=== PATIENT | female | born 2005 | race Caucasian/White ===

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

== ENCOUNTER 2024-05-05 21:29 | Emergency (ER) | payer OTHER, SELFPAY ==
[2024-05-05 21:31] VITALS: BP 126/90; PULSE 90; RESP 15; TEMP 36.2; O2SAT 98
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
[2024-05-05] MEDS: Clindamycin 150 MG CAP, 12 CAPS/BTL 450 MG PO (22:49)
--- NOTE | 2024-05-09 08:09 | NUR.NOTE ---
Access chart to determine antibiotic on discharge for wound culture. Nursing Note:
== END 2024-05-05 22:50 | disposition home or self-care (01) ==
PROVIDERS: Emergency Provider Student in an Organized Health Care Education/Training Program; PCP Family Medicine
DX: L02.411 Cutaneous abscess of right axilla (principal)
CPT/HCPCS: 10060; 87077; 87070; 87186; 87205

== ENCOUNTER 2024-06-03 15:26 | Outpatient (REF) | payer OTHER, SELFPAY ==
[2024-06-03 16:43] LABS: Abs Immature Grans 0.01 10^3/uL (0.0-0.06); Absolute Basophil Count 0.04 10^3/uL (0.0-0.2); Absolute Eosinophil Count 0.26 10^3/uL (0.0-0.7); Absolute Lymphocyte Count 1.36 10^3/uL (1.2-3.4); Absolute Monocyte Count 0.43 10^3/uL (0.1-0.8); Absolute Neutrophil Count 3.16 10^3/uL (1.2-6.7); Basophils % 0.8 %; Eosinophils % 4.9 %; HCT 40.9 % (36.0-46.0); HGB 13.1 g/dL (11.2-15.7); Immature Grans % 0.2 %; Lymphocytes % 25.9 %; MCV 84 fL (80-95); Monocytes % 8.2 %; Platelet Count 265 10^3/uL (130-400); RBC 4.85 10^6/uL (3.93-5.22); RDW 12.8 % (11.7-14.6); RDW-SD 39.2 fL; WBC 5.26 10^3/uL (4.4-10.8)
== END 2024-06-03 15:27 | disposition home or self-care (01) ==
LOC: NCHCN 15:26
PROVIDERS: PCP Family Medicine; Visit Provider Family Medicine
DX: O99.019 Anemia complicating pregnancy, unspecified trimester (principal)
CPT/HCPCS: 85025

== ENCOUNTER 2025-07-27 08:59 | Emergency (ER) | payer OTHER, MEDICAID, SELFPAY ==
[2025-07-27 09:06] VITALS: BP 136/71; PULSE 100; RESP 18; TEMP 36.4; O2SAT 100
--- NOTE | 2025-07-27 09:08 | DI.RAD_ITS ---
Exam(s) XR ANKLE RT COMPLETE EXAM: XR ANKLE RT COMPLETE CLINICAL HISTORY: trauma. TECHNIQUE: 2D digital imaging was performed of the right ankle. Three images were obtained. AP, lateral and oblique views were obtained. COMPARISON: No exams were available for comparison FINDINGS: BONES: No acute fracture is present. No bony destructive lesion is seen. JOINTS: The ankle mortise is normally aligned. SOFT TISSUE: Normal. IMPRESSION: Unremarkable radiographs of the right ankle. DATA REPOSITORY: RADIATION DOSE DELIVERED:
[2025-07-27] MEDS: Acetaminophen 325 MG TAB 650 MG PO (09:12)
[2025-07-27] MEDS: Ibuprofen 600 MG TAB PO (09:12)
--- NOTE | 2025-07-27 09:30 | RT.EKG_ITS ---
APPROVED REPORT Exam: Resting ECG Reason for Exam: syncope Patient Location: E HR:78 bpm ECG Measurements Heart Rate 78 AXIS NV 143 P 75 QRSd 81 QRS 73 QT 384 T 19 QTc 438 Conclusion Sinus rhythm...normal P axis, V-rate 60- 99 No STEMI
[2025-07-27 10:17] VITALS: BP 112/57; PULSE 66; TEMP 37.1; O2SAT 100
[2025-07-27 10:31] LABS: Abs Immature Grans 0.02 10^3/uL (0.0-0.06); HCT 40.1 % (36.0-46.0); HGB 13.4 g/dL (11.2-15.7); Immature Grans % 0.2 %; MCH 28.8 pg (27.0-33.0); MCHC 33.4 % (32.0-36.0); MCV 86 fL (80-95); MPV 10.1 fL (8.0-11.0); Platelet Count 246 10^3/uL (130-400); RBC 4.66 10^6/uL (3.93-5.22); RDW 12.2 % (11.7-14.6); RDW-SD 38.1 fL; WBC 10.01 10^3/uL (4.4-10.8)
[2025-07-27 10:51] LABS: ALT 12 U/L (14-59); AST 11 U/L (15-37); Albumin 4.7 g/dL (3.4-5.0); Alkaline Phosphatase 57 U/L (46-116); Anion Gap 9.3 mmol/L (3-11); BUN 7 mg/dL (7-18); Bilirubin, Total 1.4 mg/dL (0.2-1.0); CO2 26.7 mmol/L (21.0-32.0); Calcium 9.0 mg/dL (8.5-10.1); Chloride 101 mmol/L (98-107); Glucose 95 mg/dL (74-106); Potassium 3.8 mmol/L (3.5-5.1); Sodium 137 mmol/L (136-145); Total Protein 8.6 g/dL (6.4-8.2)
[2025-07-27 10:59] LABS: D-Dimer 363 ng/mlFEU (<500)
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
[2025-07-27 11:20] VITALS: BP 115/71; PULSE 78; O2SAT 98
== END 2025-07-27 11:20 | disposition home or self-care (01) ==
PROVIDERS: Emergency Provider General Practice; PCP Family Medicine
DX: S06.0XAA Concussion with loss of consciousness status unknown, initial encounter; M25.571 Pain in right ankle and joints of right foot; S09.8XXA Other specified injuries of head, initial encounter; R55 Syncope and collapse
CPT/HCPCS: 99284 ×2; 81025; 36415; 80053; 93005; 73610; 85025; 85379; 93010